=== PATIENT | female | born 1965 | race Caucasian/White ===

== ENCOUNTER 2025-02-02 16:53 | Inpatient (IN) | payer OTHER ==
[~2025-02-02 16:53] MED LIST: Iopamidol-370 76% 500 ML MDV (1 ML CHARGE) ONE
[2025-02-02] MEDS ORDERED: Acetaminophen 500 MG TAB ONE (19:53)
[2025-02-02 21:04] LABS: #Basophils 0.03 10x3/uL (0.0-0.2); #Eosinophils 0.22 10x3/uL (0.0-0.7); #Monocytes 0.48 10x3/uL (0.11-0.59); #Neutrophils 6.78 10x3/uL (1.40-6.50); %Basophils 0.3 % (0.0-1.0); %Eosinophils 2.1 % (0.0-10.0); %Lymphocytes 26.3 % (21.0-51.0); %Monocytes 4.7 % (0.0-10.0); %Neutrophils 66.1 % (42.0-75.0); Hematocrit 34.7 % (36.0-47.0); Hemoglobin 10.7 g/dL (12.0-16.0); Mean Corpuscular Hemoglobin 25.8 pg (27.0-31.0); Mean Corpuscular Volume 83.8 fL (78.0-98.0); Platelet Count 136 10x3/uL (130-400); Red Blood Cell (RBC) Count 4.14 mill/uL (4.20-5.40); White Blood Cell (WBC) Count 10.26 10x3/uL (4.8-10.8)
[2025-02-02 21:24] LABS: ALT (SGPT) 32 U/L (Less than 34); AST (SGOT) 34 U/L (11-34); Albumin 3.5 g/dL (3.1-4.5); Alkaline Phosphatase 77 U/L (40-110); Anion Gap 16 mmol/L (10-20); BUN (Urea Nitrogen) 14 mg/dL (9.8-20.1); Bilirubin, Total 0.9 mg/dL (0.3-1.2); Calc. Creatinine Clearance 0 mL/min (70-130); Calcium 9.2 mg/dL (7.8-10.44); Carbon Dioxide 21 mmol/L (23-31); Chloride 100 mmol/L (98-107); Globulin 4.2 g/dL (2.4-3.5); Glucose 160 mg/dL (80-115); Potassium 3.7 mmol/L (3.5-5.1); Sodium 133 mmol/L (136-145)
[2025-02-02] MEDS ORDERED: cefTRIAXone (ROCEPHIN) 2 GM VIAL ONE (21:51)
[2025-02-02] MEDS ORDERED: Nitroglycerin 2% Ointment 1 INCH/1 GM Packet ONE (21:51)
[2025-02-02] MEDS ORDERED: Azithromycin 500 MG VIAL ONE (22:30)
[2025-02-03 00:13] VITALS: BMI 46.8
[2025-02-03] MEDS ORDERED: Glucagon 1 MG/ML KIT IM PRN (00:34)
[2025-02-03] MEDS ORDERED: Dextrose 50% Abboject 50 ML SYRINGE SLOW IVP PRN (00:34)
[2025-02-03 01:57] LABS: #Basophils 0.03 10x3/uL (0.0-0.2); #Eosinophils 0.27 10x3/uL (0.0-0.7); #Monocytes 0.44 10x3/uL (0.11-0.59); #Neutrophils 5.27 10x3/uL (1.40-6.50); %Basophils 0.3 % (0.0-1.0); %Eosinophils 3.0 % (0.0-10.0); %Lymphocytes 32.6 % (21.0-51.0); %Monocytes 4.9 % (0.0-10.0); %Neutrophils 59.0 % (42.0-75.0); Hematocrit 34.8 % (36.0-47.0); Hemoglobin 10.4 g/dL (12.0-16.0); Mean Corpuscular Hemoglobin 25.7 pg (27.0-31.0); Mean Corpuscular Volume 85.9 fL (78.0-98.0); Platelet Count 134 10x3/uL (130-400); Red Blood Cell (RBC) Count 4.05 mill/uL (4.20-5.40); White Blood Cell (WBC) Count 8.95 10x3/uL (4.8-10.8)
[2025-02-03] MEDS: Melatonin 3 MG TAB PO PRN (02:06)
[2025-02-03 03:37] LABS: ALT (SGPT) 32 U/L (Less than 34); AST (SGOT) 40 U/L (11-34); Albumin 3.2 g/dL (3.1-4.5); Alkaline Phosphatase 73 U/L (40-110); Anion Gap 20 mmol/L (10-20); BUN (Urea Nitrogen) 14 mg/dL (9.8-20.1); Bilirubin, Total 0.7 mg/dL (0.3-1.2); Calc. Creatinine Clearance 115 mL/min (70-130); Calcium 9.0 mg/dL (7.8-10.44); Carbon Dioxide 17 mmol/L (23-31); Chloride 103 mmol/L (98-107); Globulin 4.2 g/dL (2.4-3.5); Glucose 204 mg/dL (80-115); Potassium 3.8 mmol/L (3.5-5.1); Sodium 136 mmol/L (136-145)
[2025-02-03 04:35] LABS: Legionella Urinary Ag Negative (Negative); Strep pneumo Urine Ag NEGATIVE (NEGATIVE)
[2025-02-03] MEDS: Sodium Chloride 0.65% Nasal 44 ML BOT EA NARE PRN (04:56)
[2025-02-03] MEDS: Acetaminophen 325 MG TAB PO PRN (08:38)
[2025-02-03] MEDS: Enoxaparin 40 MG (0.4 mL) SYRINGE SC SCH ×2 (08:39→21:09)
[2025-02-03] MEDS: Losartan 25 MG TAB PO SCH (13:43)
[2025-02-03] MEDS: cefTRIAXone\\ROCEPHIN 1 GM in Sodium Chloride 0.9% 100 ML IVPB SCH (21:08)
[2025-02-03] MEDS: Gabapentin 300 MG CAP PO SCH (21:09)
[2025-02-03] MEDS: Azithromycin 500 MG in Sodium Chloride 0.9% 250 ML 250 ML IVPB SCH (21:09)
[2025-02-03] MEDS: Rosuvastatin 20 MG TAB PO SCH (21:12)
[2025-02-03] MEDS: QUEtiapine 100 MG TAB PO SCH (21:12)
[2025-02-04 04:31] LABS: #Basophils Less than 0.03 10x3/uL (0.0-0.2); #Eosinophils 0.15 10x3/uL (0.0-0.7); #Monocytes 0.35 10x3/uL (0.11-0.59); #Neutrophils 2.61 10x3/uL (1.40-6.50); %Basophils 0.4 % (0.0-1.0); %Eosinophils 2.9 % (0.0-10.0); %Lymphocytes 39.6 % (21.0-51.0); %Monocytes 6.7 % (0.0-10.0); %Neutrophils 49.8 % (42.0-75.0); Hematocrit 29.3 % (36.0-47.0); Hemoglobin 8.5 g/dL (12.0-16.0); Mean Corpuscular Hemoglobin 25.8 pg (27.0-31.0); Mean Corpuscular Volume 88.8 fL (78.0-98.0); Platelet Count 128 10x3/uL (130-400); Red Blood Cell (RBC) Count 3.30 mill/uL (4.20-5.40); White Blood Cell (WBC) Count 5.23 10x3/uL (4.8-10.8)
[2025-02-04 04:46] LABS: ALT (SGPT) 25 U/L (Less than 34); AST (SGOT) 26 U/L (11-34); Albumin 2.7 g/dL (3.1-4.5); Alkaline Phosphatase 57 U/L (40-110); Anion Gap 13 mmol/L (10-20); BUN (Urea Nitrogen) 15 mg/dL (9.8-20.1); Bilirubin, Total 0.3 mg/dL (0.3-1.2); Calc. Creatinine Clearance 89 mL/min (70-130); Calcium 8.2 mg/dL (7.8-10.44); Carbon Dioxide 23 mmol/L (23-31); Chloride 105 mmol/L (98-107); Globulin 3.3 g/dL (2.4-3.5); Glucose 162 mg/dL (80-115); Potassium 3.8 mmol/L (3.5-5.1); Sodium 137 mmol/L (136-145)
[2025-02-04] MEDS: Pantoprazole 40 MG DR.TAB PO SCH (09:11)
[2025-02-04] MEDS: Losartan 25 MG TAB PO SCH (11:26)
[2025-02-05 05:02] LABS: #Basophils 0.03 10x3/uL (0.0-0.2); #Eosinophils 0.18 10x3/uL (0.0-0.7); #Monocytes 0.33 10x3/uL (0.11-0.59); #Neutrophils 2.74 10x3/uL (1.40-6.50); %Basophils 0.5 % (0.0-1.0); %Eosinophils 3.1 % (0.0-10.0); %Lymphocytes 42.5 % (21.0-51.0); %Monocytes 5.7 % (0.0-10.0); %Neutrophils 47.7 % (42.0-75.0); Hematocrit 31.6 % (36.0-47.0); Hemoglobin 9.1 g/dL (12.0-16.0); Mean Corpuscular Hemoglobin 25.6 pg (27.0-31.0); Mean Corpuscular Volume 89.0 fL (78.0-98.0); Platelet Count 136 10x3/uL (130-400); Red Blood Cell (RBC) Count 3.55 mill/uL (4.20-5.40); White Blood Cell (WBC) Count 5.76 10x3/uL (4.8-10.8)
[2025-02-05 05:15] LABS: ALT (SGPT) 25 U/L (Less than 34); AST (SGOT) 32 U/L (11-34); Albumin 2.8 g/dL (3.1-4.5); Alkaline Phosphatase 59 U/L (40-110); Anion Gap 12 mmol/L (10-20); BUN (Urea Nitrogen) 13 mg/dL (9.8-20.1); Bilirubin, Total 0.4 mg/dL (0.3-1.2); Calc. Creatinine Clearance 100 mL/min (70-130); Calcium 8.5 mg/dL (7.8-10.44); Carbon Dioxide 25 mmol/L (23-31); Chloride 106 mmol/L (98-107); Globulin 3.5 g/dL (2.4-3.5); Glucose 142 mg/dL (80-115); Potassium 4.3 mmol/L (3.5-5.1); Sodium 139 mmol/L (136-145)
[2025-02-05] MEDS: Amoxicillin/Potassium Clav 875 MG TAB PO SCH (10:29)
[2025-02-05 16:09] VITALS: BP 164/72; TEMP 98.9
== END 2025-02-05 16:15 | disposition home or self-care (01) | DRG 194 ==
LOC: ERS 16:53 → ERHOLD 22:51 → INTOOBSV 22:51 → 2NO 23:45 → OBSVTOIN 02-03 15:23
PROVIDERS: ADMIT Emergency Medicine; ATTEND Emergency Medicine
DX: J18.9 Pneumonia, unspecified organism (principal); N17.9 Acute kidney failure, unspecified; Z66 Do not resuscitate; I10 Essential (primary) hypertension; F17.290 Nicotine dependence, other tobacco product, uncomplicated; E11.42 Type 2 diabetes mellitus with diabetic polyneuropathy; K58.9 Irritable bowel syndrome, unspecified; I16.0 Hypertensive urgency; E78.5 Hyperlipidemia, unspecified; D64.9 Anemia, unspecified; D69.6 Thrombocytopenia, unspecified; Z90.49 Acquired absence of other specified parts of digestive tract; Z98.84 Bariatric surgery status; Z98.890 Other specified postprocedural states
CPT/HCPCS: 36415; 36416; 71046; 71275; 80053; 83605; 83880; 84145; 84484; 85025; 87040; 87077; 87149; 87428; 87449; 87899; 93005; 93306; 96365; 96372; 96375; G0378; J0456; J0696; J1650; J1815; J7050; J7120; Q9967